=== PATIENT | male | born 1960 | race Caucasian/White ===

== ENCOUNTER 2023-11-20 05:54 | Day surgery (SDC) | payer OTHER, SELFPAY ==
[2023-11-10 06:35] VITALS: BMI 29.6
[2023-11-10 07:12] LABS: % Basophils 1.5 % (0-2); % Eosinophils 12.5 % (0-6); % Immature Granulocytes 0.4 % (0-0.5); % Lymphocytes 23.3 % (20.5-51.1); % Monocytes 11.2 % (1.7-9.3); % Neutrophils 51.1 % (42.2-75.2); Absolute Basophils 0.1 10^3/uL (0-0.2); Absolute Eosinophils 1.2 10^3/uL (0-0.7); Absolute Lymphocytes 2.2 10^3/uL (1.2-3.4); Absolute Monocytes 1.1 10^3/uL (0.1-0.6); Absolute Neutrophils 4.8 10^3/uL (1.4-6.5); Hematocrit 38.8 % (39.0-52.0); Hemoglobin 13.6 g/dL (13.0-18.0); Mean Corp Hgb Conc. 35.1 g/dL (33.0-37.0); Mean Corpuscular Hgb 32.5 pg (27.0-31.0); Mean Corpuscular Volume 92.8 fL (80.0-94.0); Mean Platelet Volume 9.4 fL (7.4-10.4); Nucleated Red Blood Cells % 0 % (-); Platelet Count 220 10^3/uL (130-400); Red Blood Cell Count 4.18 10^6/uL (4.70-6.10); Red Cell Dist. Width 13.6 % (11.5-14.5); White Blood Cell Count 9.5 10^3/uL (4.8-10.8)
[2023-11-10 07:17] LABS: ALT (SGPT) 42 U/L (0-50); AST (SGOT) 49 U/L (17-59); Albumin 4.4 g/dl (3.5-5.0); Alkaline Phosphatase 69 U/L (38-126); Blood Urea Nitrogen 27 mg/dl (9-20); Calcium 9.7 mg/dl (8.4-10.2); Carbon Dioxide 31 mmol/L (22-30); Chloride 102 mmol/L (98-107); Estimated Creatinine Clearance 63 ml/min; Glucose 121 mg/dl (70-99); Potassium 4.5 mmol/L (3.5-5.1); Sodium 137 mmol/L (135-145); Total Protein 7.1 g/dl (6.3-8.2); eGFR > 60.00
[2023-11-20] VITALS (16 sets, daily range): BP systolic 92–137; BP diastolic 60–83; BMI 28.5
[2023-11-20 06:49] LABS: Glucose - Point of Care 100 mg/dl (70-99)
[2023-11-20 08:48] LABS: ACT-LR - POC 387 Seconds (116-155)
[2023-11-20 09:07] LABS: ACT-LR - POC 374 Seconds (116-155)
[2023-11-20 09:30] LABS: ACT-LR - POC 302 Seconds (116-155)
[2023-11-20 10:36] LABS: Glucose - Point of Care 99 mg/dl (70-99)
--- NOTE | 2023-11-20 10:45 | ITS.CL.ABL ---
Meter Reader Chief - Ablation
Ablation
Procedure Report:
AFIB ablation:
Mr. Angeles is a very pleasant 63 yr old woman with medical history significant for symptomatic persistent atrial fibrillation with triple vessel CAD s/p complex PCI, VF arrest s/p single chamber ICD and heart failure and is recommended rhythm
control and is here in the EP lab for atrial fibrillation ablation
Date of Procedure:
11/20/2023
Indications:
Symptomatic atrial fibrillation
Pre-Operative Diagnosis:
Persistent Atrial fibrillation
Post-Operative Diagnosis:
Persistent Atrial fibrillation
Procedure Performed:
Atrial fibrillation Redo ablation with wide area circumferential ablation (WACA) approach for pulmonary vein isolation
Atypical atrial flutter ablation with roof line formation
Performing Physician:
Dragan Tran MD
Assistants:
EP staff
Anesthesia:
See anesthesia records
Detailed Description of the Procedure:
Written informed consent was obtained from the patient after a full explanation of the risks and benefits of the procedure including the risks of sedation and anesthesia.
The patient was brought to the electrophysiology laboratory in stable condition in fasting state. Continuous electrocardiographic and hemodynamic monitoring was initiated.
The initial rhythm was atrial fibrillation with junctional escape rhythm.
Device Interrogation:
Patient has Medtronic ICD in place. The device was interrogated at the start of the case. The device and the lead was working normally. The tachy-therapies monitoring and interventions were suspended before the start of the case. The as400 programmer
remained connected in the room throughout the procedure.
At the end of the case the device was reprogrammed to normal functioning at the previous settings. All therapies are resumed and ICD was armed before patient left the procedure room.
Time out:
The procedure site was meticulously prepared with surgical scrub and allowed to dry with no pooling. Sterile draping was applied to cover the procedure site. The image intensifier was draped with sterile bag and positioned over the patient. After
infusion of local anesthetic, vascular access was obtained under ultrasound guidance and sheaths were placed over guide wire as detailed below.
Prior to the start of the procedure a surgical pause was performed with in agreement from anesthesia, EP staff with double identifier and explanation of the procedure, plan and site of the procedure stated with allergies and medications and
pertinent labs reviewed.
After infusion of local anesthetic, vascular access was obtained under ultrasound guidance and sheaths were placed over guide wire as detailed below.
Sheath and Catheter Placement:
The following catheters / sheaths were placed
Sheaths:
��������������� Agilis sheath in right femoral vein upgraded from 8Fr in right femoral vein
��������������� 9Fr in right femoral vein
��������������� 7fr in right femoral vein
Catheters:
������������� BiosDataVote Vigil Thermacool STSF bidirectional (D/F) - at locations of HRA, RV, LA and LV.
������������� Pentaray catheter � at locations of RA� and LA
������������� ICE catheter - at locations of RA, SVC, and RV.
���������������
Intracardiac ECHO:
An 8-Guamanian AcuNav intracardiac ECHO (ICE) probe was advanced through the 9-Guamanian sheath in the femoral vein into the right atrium under fluoroscopic and ICE ultrasound image guidance and a baseline ECHO study was performed. The left atrial size
was enlarged. There was trace tricuspid regurgitation. The aortic valve was normal. There was borderline normal left ventricular size and function. There was no pericardial effusion. The AMANDA has low velocities noted on Doppler in atrial fibrillation
and in sinus. There was significant spontaneous contrast noted. All the four veins were identified and good flow noted.
During the procedure, ICE was used for monitoring of complications, guidance of trans-septal puncture, monitor the catheter position and tracking ablation lesions. No change in the pericardial space noted throughout the procedure.
Trans-septal Puncture:
Heparin was initiated and infused to maintain appropriate ACT.
A J-tipped guidewire was advanced through the 8-Guamanian sheath in the right femoral vein into the superior vena cava under fluoroscopic and ICE guidance. The 8-Guamanian sheath was exchanged for an Agilis sheath which was advanced into the superior vena
cava. A BRK needle was advanced until the tip was slightly behind the tip of the dilator inside the Agilis. The apparatus was withdrawn until it was in contact with the fossa ovalis. The position was adjusted based on fluoroscopy and ultrasound
images from ICE. Under fluoroscopic, hemodynamic and ICE ultrasound guidance, left atrium was cannulated by advancing the needle. Once atrial septum was cannulated, the needle was pulled back and a BMW guide wire was advanced through the needle into
the left atrium. The guide wire was advanced into the left superior pulmonary vein. Both the sheath and the dilator was advanced into the left atrium. The dilator with the needle was withdrawn. Blood was aspirated from the Agilis sheath and arterial
blood confirmed. The sheath was flushed. Saline injection noted into the left atrium on ICE. The pressure waveform was checked ad LA pressure measured. The penta-ray catheter was advanced in the Agilis sheath into the left pulmonary vein.
The 3-D mapping was done and then the penta-ray was switched to ablation catheter and back to penta-ray as needed.
3D Electroanatomic Mapping:
Using the Pentaray catheter advanced through Agilis sheath into the left atrium, an electroanatomic map (EAM) of the left atrium was created using Avectra Carto mapping system. The map was used for localization of catheter position and
tacking of ablation lesions. The EAM of the left atrium showed 4 pulmonary veins with all four electrically connected to the body the LA. It showed extensive low voltage areas in atrial fibrillation on the posterior wall of the LA. The LA was
severely dilated in size.
Following the EAM, preparations were made for ablation.
Phrenic nerve stimulation attempt:
The right sided pulmonary veins were identified and the anterior antrum and the deep anterior locations of the PVs were check with high output stimulation that showed no phrenic nerve capture in any of the potential ablation areas.
The safe areas were marked and a design line was created through the safe areas of tested antral myocardium for ablation lesions.
Ablation:
Ablation # 1: Pulmonary vein Isolation:
Radiofrequency ablation was performed using an open irrigation, force-sensing 3.5mm radiofrequency ablation catheter (ThermocoQuantec Geoscience STSF) by completing the circumferential lesions around the left and right pulmonary veins achieving pulmonary vein
isolation.
All the ablation lesions were guided by the Emme E2MS SURPOINT module with the posterior lesions were limited to 45 thorpe for SURPOINT lesion index goal of 400 and anterior wall lesions were limited to SURPOINT index goal of 450.
The esophagus was noted to be on the left side of the LA near the PV antra based on the locations of the esophageal temperature probe. Ablation was stopped for any temperature increase of 0.1 degree C. Max esophageal temperature was 39.1C.
Cardioversion:
Due to the persistence of atrial fibrillation following the PVI, the decision was made to proceed with a cardioversion followed by the remainder of the ablation as detailed below. Therefore, a 200J shock was delivered to the chest via Zoll patches
placed with restorationist of sinus rhythm. The patient remained hemodynamically stable throughout.
The CS was paced with the ablator and no cardiac pause noted. �There was severe sinus bradycardia noted and the LA was paced.
Ablation # 2: Atypical atrial flutter with Roof line Formation:
Patient spontaneously developed atrial flutter and was entrained and mapped. The flutter was 356 ms CL and was revolving around the posterior wall. �
A set of radiofrequency ablations were placed on the roof line connecting the left superior pulmonary vein ablation lesions to the right superior pulmonary vein lesions rings.
The tachycardia slowed and terminated into sinus rhythm.
EP study and Confirmation of the PVI and bidirectional block:
Following achievement of entrance block at the pulmonary veins, pacing from the pentaray catheter in AMANDA and the pentaray in each of the four veins at 10 milliamps for 2 milliseconds showed entrance and exit block. All PVI were rechecked at the end
of the case and remained isolated with dissociated and local capture with pacing. Entrance and exit block were demonstrated in all veins.
The LA was mapped with Carto EAM in sinus rhythm confirming the line of block at the ablation lesions lines.
Sinus Node Function: The sinus node functions are within acceptable normal range.
The AV yoon functions are deemed within normal range.
Arrhythmia Induction:
No sustained arrhythmia was induced at the end of the study.�
Procedure End
ICE study was done again that showed no epicardial accumulation. No complications noted.
Following the completion of the EP study, catheters were removed. Protamine 40 mg was given at the end of the procedure and ACT was checked repeatedly. The sheaths were removed and hemostasis achieved with VASCADE and manual compression after
acceptable ACT is achieved.
Left atrial Pressure:
Pre-Procedure: Mean LA pressure was 19mmHg
Post-Procedure: Mean LA pressure was 25mmHg
Post-Procedure: Mean RA pressure was 15mmHg
Estimated Blood loss:
<10 cc
Specimens Removed:
None.
Implants / Devices:
None
Urine output:
None
Packs / Drains/ Tubes:
None
Instrument / Sponge Count Correct:
Yes
Complications of the Procedure:
None
Condition of Patient at Time of Transfer:
Hemodynamically stable with no neurological or vascular compromise.
Summary:
Successful atrial fibrillation ablation with circumferential bidirectional line of block at pulmonary vein antra (Pulmonary vein isolation), Atypical flutter ablation with roof line formation
[2023-11-20] MEDS: TYLENOL 650 MG PO (11:11)
[2023-11-20] MEDS: ANESTHETIC LOZENGE 1 LOZENGE PO (12:12)
--- NOTE | 2023-11-20 12:47 | PTCARENOTE ---
Pt states he had a temporary visual disturbance which he states he told Ariana Cha NP. Pt denies pain and states visual disturbance is already gone. Pt states he feels good and has 'no problems at all'. Pt's at pt bedside. Ariana Cha NP in re
evaluated pt. No further treatment ordered at this time. Will continue to monitor.
--- NOTE | 2023-11-20 12:58 | W.PN.UPDATE ---
Update Note
Progress Note Update
63 yo WM s/p PVI/Aflutter ablation (same day). He feels good, no cp, sob, esme diet, voiding, amb w/o dizziness, transient visual changes resolved 30min after eating, R fem site c/d/i no HT, soft, EKG Vpaced with occ PVC's. He will continue Eliquis
dose at 4pm at home. Activity restrictions reviewed. 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 He is for d/c home after 1pm.
== END 2023-11-20 13:03 | disposition home or self-care (01) ==
LOC: CATH 05:54
PROVIDERS: ATTENDING PHYSICIAN Internal Medicine Cardiovascular Disease; FAMILY PHYSICIAN Family Medicine; OTHER PHYSICIAN Internal Medicine Cardiovascular Disease
DX: I48.19 Other persistent atrial fibrillation (principal); I48.4 Atypical atrial flutter; E78.5 Hyperlipidemia, unspecified; I25.10 Atherosclerotic heart disease of native coronary artery without angina pectoris; Z79.84 Long term (current) use of oral hypoglycemic drugs; I13.0 Hypertensive heart and chronic kidney disease with heart failure and stage 1 through stage 4 chronic kidney disease, or unspecified chronic kidney disease; I50.32 Chronic diastolic (congestive) heart failure; N18.9 Chronic kidney disease, unspecified; E11.22 Type 2 diabetes mellitus with diabetic chronic kidney disease; Z79.01 Long term (current) use of anticoagulants; Z79.899 Other long term (current) drug therapy; Z95.5 Presence of coronary angioplasty implant and graft; Z86.74 Personal history of sudden cardiac arrest; K21.9 Gastro-esophageal reflux disease without esophagitis; Z86.010 Personal history of colon polyps; K76.0 Fatty (change of) liver, not elsewhere classified; R19.7 Diarrhea, unspecified; M47.022 Vertebral artery compression syndromes, cervical region; E53.8 Deficiency of other specified B group vitamins; H91.92 Unspecified hearing loss, left ear; Z79.02 Long term (current) use of antithrombotics/antiplatelets
CPT/HCPCS: C1769; C1894; C1730; C1732; C1766; C1892; C1759; 36415; 76937; 80053; 82962; 85025; 85347; 86850; 86900; 86901; 93005; 93655; 93656; C1760

== ENCOUNTER → 2024-02-28 11:54 | Outpatient (REF) | payer OTHER, SELFPAY | LOC: RAD 11:54 | PROVIDERS: ATTENDING PHYSICIAN Internal Medicine Gastroenterology; FAMILY PHYSICIAN Family Medicine | DX: K52.9 Noninfective gastroenteritis and colitis, unspecified (principal) | CPT/HCPCS: 74018 ==

== ENCOUNTER → 2024-05-27 09:10 | Outpatient (REF) | payer OTHER, SELFPAY | LOC: RCS 09:10 | PROVIDERS: ATTENDING PHYSICIAN Internal Medicine Cardiovascular Disease; FAMILY PHYSICIAN Family Medicine | DX: I49.01 Ventricular fibrillation (principal); I50.32 Chronic diastolic (congestive) heart failure; I25.10 Atherosclerotic heart disease of native coronary artery without angina pectoris; I48.19 Other persistent atrial fibrillation; Z95.5 Presence of coronary angioplasty implant and graft | CPT/HCPCS: 93306 ==

== ENCOUNTER → 2024-06-18 13:26 | Outpatient (REF) | payer OTHER, SELFPAY | LOC: MRI 13:26 | PROVIDERS: ATTENDING PHYSICIAN Nurse Practitioner; FAMILY PHYSICIAN Family Medicine | DX: K52.9 Noninfective gastroenteritis and colitis, unspecified (principal); K86.89 Other specified diseases of pancreas | CPT/HCPCS: 74183; A9575 ==

== ENCOUNTER → 2024-07-29 07:39 | Outpatient (REF) | payer OTHER, SELFPAY | LOC: EMG 07:39 | PROVIDERS: ATTENDING PHYSICIAN Family Medicine | DX: G56.23 Lesion of ulnar nerve, bilateral upper limbs (principal); R20.2 Paresthesia of skin | CPT/HCPCS: 95886; 95913 ==

== ENCOUNTER 2024-09-21 06:17 | Day surgery (SDC) | payer OTHER, SELFPAY ==
[2024-09-10 09:00] LABS: % Basophils 1.4 % (0-2); % Eosinophils 3.5 % (0-6); % Immature Granulocytes 0.1 % (0-0.5); % Monocytes 13.7 % (1.7-9.3); % Neutrophils 54.3 % (42.2-75.2); Absolute Basophils 0.1 10^3/uL (0-0.2); Absolute Eosinophils 0.3 10^3/uL (0-0.7); Hematocrit 39.7 % (39.0-52.0); Hemoglobin 13.4 g/dL (13.0-18.0); Mean Corp Hgb Conc. 33.8 g/dL (33.0-37.0); Mean Corpuscular Hgb 32.8 pg (27.0-31.0); Mean Corpuscular Volume 97.1 fL (80.0-94.0); Mean Platelet Volume 9.3 fL (7.4-10.4); Nucleated Red Blood Cells % 0 % (-); Platelet Count 256 10^3/uL (130-400); Red Blood Cell Count 4.09 10^6/uL (4.70-6.10); Red Cell Dist. Width 13.9 % (11.5-14.5); White Blood Cell Count 7.4 10^3/uL (4.8-10.8)
[2024-09-10 13:46] VITALS: BMI 26.5
[2024-09-21] VITALS (9 sets, daily range): BP systolic 126–141; BP diastolic 68–81; BMI 26.5
[2024-09-21 10:02] LABS: Glucose - Point of Care 109 mg/dl (70-99)
[2024-09-21] MEDS: NORMOSOL-R/PLASMALYTE-A 1000 IV (10:03)
[2024-09-21] MEDS: CELEBREX 200 MG PO (10:03)
[2024-09-21] MEDS: TYLENOL 1000 MG PO (10:03)
[2024-09-21 12:39] LABS: Glucose - Point of Care 106 mg/dl (70-99)
== END 2024-09-21 14:25 | disposition home or self-care (01) ==
LOC: SDS 06:17
PROVIDERS: ATTENDING PHYSICIAN Orthopaedic Surgery; FAMILY PHYSICIAN Family Medicine; OTHER PHYSICIAN Internal Medicine Cardiovascular Disease
PROC: 01N50ZZ Release Median Nerve, Open Approach (ICD-10-PCS; 2024-09-21)
PROC: 01N40ZZ Release Ulnar Nerve, Open Approach (ICD-10-PCS; 2024-09-21)
DX: G56.21 Lesion of ulnar nerve, right upper limb (principal); G56.01 Carpal tunnel syndrome, right upper limb
CPT/HCPCS: 64718; 64721; 36415; 82962; 85025; 93005

== ENCOUNTER 2024-10-11 12:18 | Emergency (ER) | payer OTHER, SELFPAY ==
[2024-10-11 12:20] VITALS: BP 174/83
--- NOTE | 2024-10-11 13:36 | ED.GENMED ---
History of Present Illness
General
Chief Complaint: Musculo-Skeletal Complaint
Time Seen by Provider: 10/11/24 13:21
History of Present Illness
History of Present Illness:
64-year-old male presents the emergency department for evaluation of left shoulder/clavicle pain for the past 4 days after a fall. Landed directly on the left shoulder. Pain radiates toward the neck, no chest pain or dyspnea. No left arm
paresthesias
Past History
Past History
ED Past Medical History: HTN, Hypercholesterolemia and NIDDM
Social History
Tobacco: Non-smoker
Living: with family
Employment: Employed
Review of Systems
Review of Systems
Allergies reviewed?: Yes
All Other Systems: ROS reviewed and negative except as documented in HPI and ROS
Phy Exam
Physical Exam
Physical Exam:
GEN: Well appearing, NAD, WDWN
HEENT: Oral mucosa moist, no scleral icterus
Cardiac: Regular rate
Lung: No respiratory distress, no tachypnea
MSK: No gross deformity or injuries. Left shoulder range of motion normal in all zaldivar, no reproducible tenderness to the left clavicle and left shoulder. There is mild tenderness to left trapezius region with normal cervical spine range of motion
Skin: Good color, no pallor or jaundice, no rashes
Neuro: AO x3, moves all extremities freely
Psych: Calm, cooperative
Course
Orders/Labs/Results
Orders:
Orders
10/11/24 12:23
CR Clavicle - Left Complete Urgent
Comment:
Reason For Exam: Injury
Vital Signs
Initial and Last Documented VS:
Initial Vital Signs
Temp Pulse Resp BP Pulse Ox
97.5 F 56 16 174/83 99
10/11/24 12:20 10/11/24 12:20 10/11/24 12:20 10/11/24 12:20 10/11/24 12:20
Last Documented Vital Signs
Temp Pulse Resp BP Pulse Ox
97.5 F 60 18 160/80 99
10/11/24 12:20 10/11/24 13:55 10/11/24 13:55 10/11/24 13:55 10/11/24 13:55
MDM/Problems Addressed
MDM/Problems Addressed:
X-rays unremarkable, range of motion is normal and reassuring, likely soft tissue injury
*Critical Care Note
Total Time (30-74mins, 75-104mins- exclusive of procedures): Not Applicable
ED Attending Note
-
Portions of this chart may have been created with voice recognition software.� Occasional wrong word or��sound alike� substitutions may have occurred due to the inherent limitations of voice recognition software.
Discharge Plan
Departure
Patient Disposition: Home (Routine Discharge)
Date of Disposition: 10/11/24
Time of Disposition: 13:38
Patient with high blood pressure during this ER visit?: No
Discharge Problem:
Contusion of left shoulder
Instructions: Contusion (DC)
Prescriptions:
No Action
furosemide [Lasix] 40 mg tablet
40 mg PO DAILY
Eliquis 5 mg tablet
5 mg PO BID
metformin 500 mg Tablet
500 mg PO BID Qty: 0 0RF
pantoprazole 40 mg tablet,delayed release (DR/EC)
40 mg PO DAILY Qty: 90 3RF
gabapentin 300 mg Capsule
300 mg PO HS
losartan 50 mg tablet
50 mg PO QPM
Mounjaro 5 mg/0.5 mL Pen Injector
5 mg SC PABLO
Rx Instructions:
Q Friday
spironolactone [Aldactone] 25 mg Tablet
25 mg PO QPM
nitroglycerin 0.4 mg Tablet, Sublingual
0.4 mg SUBLINGUAL Q5-15M PRN (Reason: chest pain)
Patient Comments:
Pt states he has never taken NTG
atorvastatin 20 mg Tablet
20 mg PO QPM
Eylea 2 mg/0.05 mL Solution
2 mg INTRAVITREAL PRN PRN (Reason: eye injections)
Creon 36,000-114,000- 180,000 unit Capsule,Delayed Release(Dr/Ec)
2 cap PO AC
Creon 36,000-114,000- 180,000 unit Capsule,Delayed Release(Dr/Ec)
1 cap PO PRN PRN (Reason: with snacks)
mecobalamin (vitamin B12) [B12 Active] 1,000 mcg Tablet,Chewable
1,000 mcg PO DAILY
Referrals:
Arya Glasgow DO [Family Provider] -
Interventions
Interventions:
*Risk Screen - Suicide Last Done: 10/11/24 12:54
*General Assessment Last Done: 10/11/24 12:54
*Neglect/Abuse Screening Last Done: 10/11/24 12:54
*ED COVID-19 Vaccine History Last Done: 10/11/24 12:54
*Nursing Disposition Last Done: 10/11/24 13:55
ED-Musculoskeletal Assessment Last Done: 10/11/24 12:54
Discharge Date and Time
Discharge Date/Time: 10/11/24 13:58
Print Language: MOSOTHO
[2024-10-11 13:55] VITALS: BP 160/80
== END 2024-10-11 13:58 | disposition home or self-care (01) ==
LOC: EMR 12:18
PROVIDERS: EMERGENCY PHYSICIAN Emergency Medicine; FAMILY PHYSICIAN Family Medicine
DX: S40.012A Contusion of left shoulder, initial encounter (principal); W19.XXXA Unspecified fall, initial encounter
CPT/HCPCS: 99283; 73000

== ENCOUNTER → 2024-11-02 13:27 | Outpatient (REF) | payer OTHER, SELFPAY | LOC: MRI 13:27 | PROVIDERS: ATTENDING PHYSICIAN Family Medicine | DX: M54.12 Radiculopathy, cervical region (principal); H90.A21 Sensorineural hearing loss, unilateral, right ear, with restricted hearing on the contralateral side | CPT/HCPCS: 70553; 72141; 72148; A9575 ==

== ENCOUNTER → 2024-11-29 07:58 | Outpatient (REF) | payer OTHER, SELFPAY | LOC: RCS 07:58 | PROVIDERS: ATTENDING PHYSICIAN Internal Medicine Cardiovascular Disease; FAMILY PHYSICIAN Family Medicine | DX: I50.32 Chronic diastolic (congestive) heart failure (principal); I27.20 Pulmonary hypertension, unspecified | CPT/HCPCS: 93306 ==

== ENCOUNTER → 2025-05-04 08:30 | Outpatient (REF) | payer OTHER, SELFPAY | LOC: RCS 08:30 | PROVIDERS: ATTENDING PHYSICIAN Internal Medicine Cardiovascular Disease; FAMILY PHYSICIAN Family Medicine | DX: I49.01 Ventricular fibrillation (principal); I47.20 Ventricular tachycardia, unspecified | CPT/HCPCS: 93306 ==

== ENCOUNTER 2025-06-09 09:44 | Day surgery (SDC) | payer OTHER, SELFPAY ==
[2025-06-09] VITALS (7 sets, daily range): BP systolic 112–148; BP diastolic 63–86; BMI 26.4
[2025-06-09 10:09] LABS: Hematocrit 34.9 % (39.0-52.0); Hemoglobin 12.5 g/dL (13.0-18.0); Mean Corp Hgb Conc. 35.8 g/dL (33.0-37.0); Mean Corpuscular Volume 91.6 fL (80.0-94.0); Platelet Count 215 10^3/uL (130-400); Red Cell Dist. Width 13.2 % (11.5-14.5)
[2025-06-09 10:21] LABS: ALT (SGPT) 27 U/L (0-50); AST (SGOT) 33 U/L (17-59); Albumin 4.5 g/dl (3.5-5.0); Alkaline Phosphatase 60 U/L (38-126); Blood Urea Nitrogen 27 mg/dl (9-20); Calcium 9.2 mg/dl (8.4-10.2); Carbon Dioxide 28 mmol/L (22-30); Chloride 104 mmol/L (98-107); Glucose 114 mg/dl (70-99); Potassium 4.5 mmol/L (3.5-5.1); Sodium 141 mmol/L (135-145); Total Protein 7.3 g/dl (6.3-8.2); eGFR 55.78
[2025-06-09] MEDS: LOW STRENGTH ASPIRIN 324 MG PO (10:54)
--- NOTE | 2025-06-09 13:17 | ITS.CL.CATH ---
Oxide Furnace Tender - Catheterization
Cardiac Catheterization
Procedure Report:
LEFT HEART CATHETERIZATION
Date of Procedure: June 09, 2025
Referring: Dr. Nico Ramsay
PROCEDURES:
1. Left heart catheterization with coronary and single-plane left ventriculography
INDICATION: This is a 65-year-old gentleman with a prior history of coronary artery disease. In February 2023 he underwent successful stenting of OM 2 with a 2.5 x 8 mm Xience stent that was postdilated with a 2.75 mm noncompliant balloon stenting of
the distal LAD with a 2.5 x 23 mm Xience stent that was postdilated with a 2.75 mm noncompliant balloon, stenting of mid LAD with a 2.75 x 12 mm Xience stent that was postdilated with a 3.0 mm noncompliant balloon and stenting of the proximal LAD
with a 3.0 x 12 mm Xience stent that was postdilated with a 3 mm noncompliant balloon and stenting of the mid RCA with a 3.0 x 12 mm Xience stent and distal RCA into a posterolateral branch with a 2.25 x 23 mm Xience stent. Immediately after this
procedure he was attending cardiac rehab and had experienced a VF arrest. He subsequently had an ICD placed. He has done well since that time but experienced a recent ICD discharge for ventricular fibrillation. He had been sitting in his chair
and reports feeling a little dizzy. The following day he was called and notified that his ICD discharge. A subsequent myocardial perfusion PET/CT was notable for a moderate area of moderately reduced uptake from the basal to apical anterior wall
with an estimated ejection fraction of 59% at rest and 74% with stress. He is now referred for coronary angiography.
ACCESS: Right radial artery, 6 Slovak sheath using ultrasound guidance
HEMODYNAMICS : (mmHg)
AO (s/d) : 118/65, 86
LV (s/d) : 118/12
LVEDP : 19
CORONARY FINDINGS
DOMINANCE: Right
LEFT MAIN: Short and unobstructed
LEFT ANTERIOR DESCENDING: The LAD arises normally from the left main and runs in the anterior interventricular groove. Several very small diffusely diseased diagonal branches arise from the proximal and mid LAD on the previous angiogram. These
diagonal branches appear more diffusely diseased with a very small diffusely diseased diagonal demonstrating BALJINDER II flow. The LAD has multiple stents. The most proximal stent has a 30% in-stent restenosis. The mid stent is widely patent as is
the most distal LAD stent. The apical LAD has a 60% stenosis that has progressed from prior study.
CIRCUMFLEX: The circumflex is a large-caliber nondominant vessel. The first sizable obtuse marginal branch arises from the mid circumflex. The stent in the distal portion of OM1 is widely patent with the distal edge of the stent ending just before
the vessel bifurcates into 2 daughter branches. One of the daughter branches has a angiographically stable 80% proximal stenosis. The circumflex continues in the AV groove with diffuse nonfocal luminal irregularity
RIGHT CORONARY ARTERY: The right coronary artery is a moderate caliber dominant vessel. The stent in the mid right coronary artery is widely patent. There is a stent in a moderate-sized posterolateral branch that is widely patent
VENTRICULOGRAPHY: Left ventriculography was performed in an ALVAREZ projection. The digital single-plane left ventricular ejection fraction is estimated at 60%
SEDATION: 48 minutes of procedural sedation was utilized. An independent medical assistant prn was present to assist with and help manage the patient's level of consciousness and physiologic status.
RADIATION SUMMARY: Fluoro Time (min): 4.6, Dose (mGy): 512, DAP (Gy.cm2) : 36.4
Closure Device: TR band
CONCLUSIONS
1. Moderate progression of branch vessel disease in several of the proximal diagonal branches with a very small diagonal now demonstrating sluggish flow to the distal vessel. There had been modest progresstion of atherosclerosis in the apical LAD
as well as stable atherosclerosis in distal OM branch vessel disease
2. Preserved LV systolic function
RECOMMENDATIONS
1. Will push oral beta-nikolas. Increase Toprol-XL to 25 mg p.o. in the a.m. and 25 mg p.o. in p.m.
Copy to: Dr. Nico Ramsay
== END 2025-06-09 16:25 | disposition home or self-care (01) ==
LOC: CATH 09:44
PROVIDERS: ATTENDING PHYSICIAN Internal Medicine Interventional Cardiology; FAMILY PHYSICIAN Family Medicine; OTHER PHYSICIAN Internal Medicine Cardiovascular Disease
DX: I25.10 Atherosclerotic heart disease of native coronary artery without angina pectoris (principal); I11.0 Hypertensive heart disease with heart failure; I50.32 Chronic diastolic (congestive) heart failure; Z86.74 Personal history of sudden cardiac arrest; Z95.5 Presence of coronary angioplasty implant and graft; Z95.810 Presence of automatic (implantable) cardiac defibrillator; Z79.01 Long term (current) use of anticoagulants; Z79.84 Long term (current) use of oral hypoglycemic drugs; Z79.899 Other long term (current) drug therapy; Z79.85 Long-term (current) use of injectable non-insulin antidiabetic drugs; E78.2 Mixed hyperlipidemia
CPT/HCPCS: 99152; 99153; 80053; 85027; 93458; C1769; C1894; Q9967